=== PATIENT | female | born 1985 | race Caucasian/White ===

== ENCOUNTER 2016-11-05 12:07 | Emergency (ER) | payer OTHER ==
--- NOTE | ~2016-11-05 | ER ---
PATIENT'S NAME: MICHAEL QUEZADA [facility] AGE: 31 Y [address] ROOM: [place] [address] LOCATION: [facility] ADMIT DATE: 11/05/2016 ER/Outpatient Report DISCHARGE DATE: 11/05/2016 FAMILY PHYSICIAN: PHYSICIAN, NO ATTENDING PHYSICIAN: Marline Davila Time of Arrival: 1211 hours. Time of Evaluation: 1211 hours. CHIEF COMPLAINT: Sore throat. HISTORY OF PRESENT ILLNESS: The patient is a 31-year-old female who presents to emergency department today with chief complaint of sore throat. She reports this started about 1 day prior to arrival. She has a history of strep throat in the past. She has some lymph nodes that are tender around her throat as well. She has some difficulty swallowing. Denies any cough, some subjective fevers. No chills. No dental pain. She has hoarse voice. No sinus pain. No facial pain. No swollen jaw or face. Denies any nausea or vomiting. Pain is currently 5/10 in severity. She has sharp pain. She is currently visiting from [place]. Jamee does have cancer and is on chemotherapy, so she was concerned about passing infection to her. PAST MEDICAL HISTORY: Asthma, Crohn's. PAST SURGICAL HISTORY: Bowel resection. SOCIAL HISTORY: The patient smokes one cigarette per day. Denies any alcohol, or illicit drug use. ALLERGIES: MORPHINE. MEDICATIONS: Please see list. PRIMARY CARE DOCTOR: In [place]. REVIEW OF SYSTEMS: All systems are reviewed by myself and negative with the exception of those PATIENT'S NAME: MICHAEL QUEZADA [facility] AGE: 31 Y [address] ROOM: [place] [address] LOCATION: [facility] ADMIT DATE: 11/05/2016 ER/Outpatient Report DISCHARGE DATE: 11/05/2016 FAMILY PHYSICIAN: PHYSICIAN, NO ATTENDING PHYSICIAN: Marline Davila discussed in HPI and past medical history. PHYSICAL EXAMINATION: VITAL SIGNS: Weight 65.4 kg, blood pressure 129/85, pulse 82, respiratory rate 16, temperature 99.2, oxygen saturation 98% on room air. GENERAL: The patient is a 31-year-old female, who appears the stated age, in no acute distress at this time. HEENT: Head: Normocephalic, atraumatic. Pupils are equal, round, and reactive to light. Extraocular motions are intact. Nares are patent bilaterally. Oropharynx: Posterior pharynx is erythematous. There is no pus pockets noted. The mucous membranes are moist. There is no Fadi's angina. NECK: Supple. There is no nuchal rigidity. CARDIOVASCULAR: Regular rate and rhythm. No murmurs, rubs, or gallops. LUNGS: Clear to auscultation bilaterally. No wheezes, rales, or rhonchi. ABDOMEN: Soft, nontender, and nondistended. No rebound, rigidity, or guarding. MUSCULOSKELETAL: The patient moves all 4 extremities. SKIN: Warm and dry. There is no rashes or lesions noted. LABORATORY DATA AND X-RAYS: None. IMPRESSION: 1. Pharyngitis suspect streptococcal. 2. Initial visit. EMERGENCY DEPARTMENT COURSE: The patient was brought back to the examination room. Seen and evaluated by myself. History and physical are described as above. 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 She is on Humira. She is also visiting her grandmother who is on chemotherapy. She has requested antibiotic coverage for Streptococcus. This does seem reasonable at this time. I have discussed writing her for amoxicillin. I have discussed return to care instructions including worsening symptoms or other concerns to return to the emergency department as soon as possible. I have written a prescription for amoxicillin. I have asked she follows up with primary care doctor in 2 to 3 days. The patient is agreeable without further questions. DISPOSITION: The patient discharged home in good condition. MARLINE DAVILA DO PATIENT'S NAME: MICHAEL QUEZADA [facility] AGE: 31 Y [address] ROOM: [place] [address] LOCATION: [facility] ADMIT DATE: 11/05/2016 ER/Outpatient Report DISCHARGE DATE: 11/05/2016 FAMILY PHYSICIAN: PHYSICIAN, NO ATTENDING PHYSICIAN: Marline Davila/holly /[id number] d: 11/05/16 1830 t: 11/06/16 1608, OUTPATIENT REPORT
== END 2016-11-05 12:29 | disposition disaster alternative care site (69) ==
LOC: GMED 12:07
DX: J02.9 Acute pharyngitis, unspecified (principal); J45.909 Unspecified asthma, uncomplicated; F17.210 Nicotine dependence, cigarettes, uncomplicated; Z79.899 Other long term (current) drug therapy; Z88.5 Allergy status to narcotic agent; Z98.890 Other specified postprocedural states